=== PATIENT | female | born 1970 | race Caucasian/White ===

== ENCOUNTER 2021-07-26 10:58 | Emergency (ER) | payer BC, SELFPAY ==
[2021-07-26] MEDS ORDERED: Ibuprofen 200 MG TAB ONE (11:41)
== END 2021-07-26 11:58 | disposition home or self-care (01) ==
LOC: NAV ERS 10:58
DX: S93.601A Unspecified sprain of right foot, initial encounter (principal); E03.9 Hypothyroidism, unspecified; K21.9 Gastro-esophageal reflux disease without esophagitis; W23.0XXA Caught, crushed, jammed, or pinched between moving objects, initial encounter